=== PATIENT | female | born 2000 | race Hispanic/Latino ===

== ENCOUNTER → 2025-04-09 | Day surgery (SDC) | payer OTHER ==
[~2025-04-09] MED LIST: FAMOTIDINE 20 MG/2 ML VIAL IV ONE; FENTANYL CITRATE/PF 100MCG/2 ML INJ ONE; GLYCOPYRROLATE INJ 0.2 MG/ML VIAL ONE; LIDOCAINE HCL 2% LOCAL INJ 5 ML SDV VIAL INJ ONE; METOCLOPRAMIDE HCL 10 MG/2ML VIAL ONE; ONDANSETRON HCL INJ 2MG/ML 2ML 2 MG/ML VIAL ONE; PROPOFOL IV EMULSION 10 MG/ML 20 ML VIAL ONE
[2025-04-09] MEDS: LACTATED RINGER'S 1,000 ML ONE (13:18)
[2025-04-09 16:43] VITALS: BP 123/76; PULSE 84; RESP 18; O2SAT 98
== END | disposition home or self-care (01) ==
LOC: OR 05:00
PROVIDERS: ATTEND Internal Medicine Gastroenterology
DX: K29.70 Gastritis, unspecified, without bleeding (principal); K21.9 Gastro-esophageal reflux disease without esophagitis; K31.89 Other diseases of stomach and duodenum; K20.90 Esophagitis, unspecified without bleeding; K59.09 Other constipation; E66.01 Morbid (severe) obesity due to excess calories; Z68.27 Body mass index [BMI] 27.0-27.9, adult; Z71.3 Dietary counseling and surveillance
CPT/HCPCS: 43239; 81025; J1308; J2003; J2405; J2470; J2704; J2765; J3010; J7121